=== PATIENT | female | born 1970 | race Caucasian/White ===

== ENCOUNTER → 2016-05-16 | Outpatient (CLI) | payer OTHER | LOC: MC.RAD 10:00 | DX: Z12.31 Encounter for screening mammogram for malignant neoplasm of breast (principal); Z80.3 Family history of malignant neoplasm of breast ==

== ENCOUNTER → 2017-05-25 | Outpatient (CLI) | payer OTHER | LOC: MC.RAD 11:17 | DX: Z12.31 Encounter for screening mammogram for malignant neoplasm of breast (principal) ==

== ENCOUNTER → 2019-03-23 | Outpatient (CLI) | payer OTHER | LOC: MC.RAD 13:32 | DX: Z12.31 Encounter for screening mammogram for malignant neoplasm of breast (principal) ==

== ENCOUNTER → 2020-05-03 | Outpatient (CLI) | payer OTHER | LOC: MC.RAD 13:45 | DX: Z12.31 Encounter for screening mammogram for malignant neoplasm of breast (principal) ==

== ENCOUNTER → 2021-06-07 | Outpatient (CLI) | payer OTHER | LOC: MC.RAD 14:30 | DX: Z12.31 Encounter for screening mammogram for malignant neoplasm of breast (principal) ==

== ENCOUNTER 2021-12-24 11:50 | Emergency (ER) | payer OTHER ==
[~2021-12-24] VITALS: Ht 172.7 cm; Wt 61.4 kg
[2021-12-24 12:00] VITALS: TEMP 97.6
[2021-12-24 13:45] VITALS: BP 115/71; PULSE 60
== END 2021-12-24 13:45 | disposition home or self-care (01) ==
LOC: COL.ER 11:50
DX: S61.217A Laceration without foreign body of left little finger without damage to nail, initial encounter (principal); W23.1XXA Caught, crushed, jammed, or pinched between stationary objects, initial encounter; Y92.59 Other trade areas as the place of occurrence of the external cause; Y99.0 Civilian activity done for income or pay

== ENCOUNTER 2022-06-26 10:36 | Emergency (ER) | payer SELFPAY ==
[~2022-06-26] VITALS: Ht 172.7 cm; Wt 63.6 kg
[2022-06-26 10:41] VITALS: BP 127/77
[2022-06-26] MEDS ORDERED: AMOXICILLIN 8751 TAB PO (10:59)
[2022-06-26 11:50] VITALS: PULSE 88; TEMP 98.1
== END 2022-06-26 11:55 | disposition home or self-care (01) ==
LOC: COL.ER 10:36
DX: S61.210A Laceration without foreign body of right index finger without damage to nail, initial encounter (principal); W64.XXXA Exposure to other animate mechanical forces, initial encounter; Y92.834 Zoological garden (Zoo) as the place of occurrence of the external cause